=== PATIENT | male | born 1955 | race Caucasian/White ===

== ENCOUNTER 2017-06-28 09:30 | Outpatient (CLI) | payer OTHER ==
[2017-06-28 10:47] LABS: #Basophils 0.1 thou/uL (0.0-0.2); #Eosinphils 0.5 thou/uL (0.0-0.7); #Lymphocytes 2.2 thou/uL (1.20-3.40); #Monocytes 0.7 thou/uL (0.11-0.59); #Neutrophils 4.2 thou/uL (1.40-6.50); %Basophils 1.1 % (0.0-1.0); %Eosinophils 6.6 % (0.0-10.0); %Lymphocytes 28.1 % (21.0-51.0); %Monocytes 8.9 % (0.0-10.0); %Neutrophils 55.2 % (42.0-75.0); Hemoglobin 15.3 g/dL (14.0-18.0); Mean Corpuscular HGB CONC 34.4 g/dL (32.0-36.0); Mean Corpuscular Hemoglobin 34.4 pg (27.0-31.0); Mean Platelet Volume 8.5 fL (7.4-10.4); Platelet Count 304 thou/uL (130-400); RBC Distribution Width 12.3 % (11.5-14.5); Red Blood Cell (RBC) Count 4.46 mill/uL (4.70-6.10); White Blood Cell (WBC) Count 7.6 thou/uL (4.8-10.8)
[2017-06-28 10:59] LABS: ALT (SGPT) 23 U/L (8-55); AST (SGOT) 19 U/L (5-34); Albumin 4.7 g/dL (3.5-5.0); Alkaline Phosphatase 72 U/L (40-150); Anion Gap 16 mmol/L (10-20); BUN (Urea Nitrogen) 8 mg/dL (8.4-25.7); Bilirubin, Total 0.4 mg/dL (0.2-1.2); Calc. Creatinine Clearance 0 mL/min (70-130); Calcium 10.2 mg/dL (7.8-10.44); Carbon Dioxide 24 mmol/L (22-29); Chloride 104 mmol/L (98-107); Estimated GFR-MDRD Greater than 90; Globulin 2.6 g/dL (2.4-3.5); Glucose 86 mg/dL (70-105); Potassium 4.9 mmol/L (3.5-5.1); Protein, Total 7.3 g/dL (6.0-8.3); Sodium 139 mmol/L (136-145)
--- NOTE | 2017-06-28 16:38 | EKG ---
Test Reason : Blood Pressure : / mmHG Vent. Rate : 066 BPM Atrial Rate : 066 BPM P-R Int : 174 ms QRS Dur : 100 ms QT Int : 402 ms P-R-T Axes : 049 063 059 degrees QTc Int : 421 ms Normal sinus rhythm Repolarization variant Confirmed by DR. Jluis OJEDA ([id number]) on 06/28/2017 4:38:06 PM Referred By: JULIO Confirmed By:DR. Jluis OJEDA
== END 2017-06-28 09:31 | disposition home or self-care (01) ==
LOC: LABBT 09:30
PROVIDERS: ATTEND Surgery
DX: Z01.818 Encounter for other preprocedural examination (principal); K40.91 Unilateral inguinal hernia, without obstruction or gangrene, recurrent
CPT/HCPCS: 80053; 85025; 93005; 93010

== ENCOUNTER 2017-06-29 06:05 | Day surgery (SDC) | payer OTHER ==
[2017-06-28 10:16] VITALS: BMI 25.6
[2017-06-29] MEDS ORDERED: Bupivacaine/Epinephrine 0.25% 30 ML VIAL ONE (06:52)
[2017-06-29] MEDS ORDERED: Fentanyl 100 MCG/2 ML VIAL ONE (07:07)
[2017-06-29] MEDS ORDERED: CEFAZOLIN/Water 2 GM/20 ML SYRINGE ONE (07:07)
[2017-06-29] MEDS ORDERED: Midazolam HCl 2 mg/2 ml Vial ONE (07:21)
[2017-06-29] MEDS ORDERED: Ondansetron HCl/PF 4 MG/2 ML Vial ONE ×2 (07:21→13:26)
[2017-06-29] MEDS ORDERED: Ketorolac Tromethamine 30 MG/ML VIAL ONE ×2 (08:39→13:26)
[2017-06-29] MEDS ORDERED: Morphine 4 MG/ML VIAL ONE (09:21)
[2017-06-29] MEDS ORDERED: HYDROcodone/Acetaminophen 5/325 mg Tablet ONE (09:22)
--- NOTE | 2017-06-29 11:22 | OP ---
PREOPERATIVE DIAGNOSIS: Recurrent left inguinal hernia. SURGEON: Rajan Alanis M.D. PROCEDURE PERFORMED: Recurrent left inguinal hernia repair with mesh. INDICATIONS: This is a 62-year-old male who 3 years ago had a left inguinal hernia repair done with the robot, he developed a recurrent bulge. FINDINGS: A direct inguinal hernia. DESCRIPTION OF PROCEDURE: After informed consent was obtained, the patient was taken to the operatin g room and given general mask anesthesia and placed in the supine position. His left groin was prepp ed and draped in usual fashion. Local anesthesia infiltrated subcutaneously and deep. A transverse left inguinal incision was performed. Subcu divided sharply. The fascia was incised in the directio n of its fibers through the external ring. The spermatic cord isolated with a [place] drain. There was a hernia sac that was dissected from the cord structures down to a direct hernia medially. This was circumscribed and reduced. Reduction was maintained utilizing a PHS hernia system. This posteri or layer was placed in the preperitoneal space. Anterior was laid out, sutured to the pubic tubercle medially with a 2-0 Prolene suture, tucked under the external oblique fascia laterally. Hemostasis was assured. The cord placed anatomic. The fascia closed with a running 3-0 Vicryl. Nely's close d with interrupted 3-0 Vicryl and the skin closed with a running subcuticular 4-0 Rapide. Steri-Stri ps applied. Sterile bandage applied. The patient tolerated the procedure well and was transferred t o recovery in good condition. Sponge and needle count verified correct x2.
[2017-06-29] MEDS ORDERED: Dexamethasone 20 MG/5 ML VIAL ONE (13:26)
[2017-06-29] MEDS ORDERED: PROPOFOL 200 MG/20 ML VIAL ONE (13:26)
[2017-06-29] MEDS ORDERED: Lidocaine 1% PF 5 ML VIAL ONE (13:26)
[2017-06-29] MEDS ORDERED: PHENYLEPHRINE-NS 100 MCG/ML 10 ML SYRINGE ONE (13:26)
== END 2017-06-29 10:20 | disposition home or self-care (01) ==
LOC: SDC 06:05
PROVIDERS: ATTEND Surgery
PROC: 0YU60JZ Supplement Left Inguinal Region with Synthetic Substitute, Open Approach (ICD-10-PCS; principal; 2017-06-29)
DX: K40.91 Unilateral inguinal hernia, without obstruction or gangrene, recurrent (principal); K21.9 Gastro-esophageal reflux disease without esophagitis; G25.81 Restless legs syndrome; E78.5 Hyperlipidemia, unspecified; N52.9 Male erectile dysfunction, unspecified; M19.90 Unspecified osteoarthritis, unspecified site; M54.9 Dorsalgia, unspecified; G89.29 Other chronic pain; Z79.899 Other long term (current) drug therapy; Z88.5 Allergy status to narcotic agent; Z98.890 Other specified postprocedural states; Z87.891 Personal history of nicotine dependence
CPT/HCPCS: 96374; C1781; J1100; J1885; J2001; J2250; J2270; J2405; J2704; J3010

== ENCOUNTER 2019-01-03 10:21 | Outpatient (CLI) | payer OTHER ==
[2019-01-03] MEDS ORDERED: Gadobenate Dimeglumine 529 MG/1 ML (20ML VIAL) ONE (10:28)
--- NOTE | 2019-01-03 11:16 | RAD ---
SINUS X-RAY [place] V[place]: 01/03/2019 PROVIDED CLINICAL HISTORY: History of metal in the eye. FINDINGS: There is no evidence for a metallic foreign body in the region of the orbits. IMPRESSION: As above. POS: OFF
--- NOTE | 2019-01-03 11:54 | MRI ---
Exam: Brain MRI with and without contrast HISTORY: Vertebrobasilar artery syndrome. Patient fell off a ladder 4 weeks ago and hit his head on t he ground. Loss consciousness. COMPARISON: None FINDINGS: Gradient echo sequence: No hemorrhage Calvarium: Appropriate T1 marrow signal intensity Midline brain parenchyma: Unremarkable Cerebrum:No parenchymal mass, mass effect or midline shift. Age-appropriate atrophy. Cortical sosa-wh ite matter differentiation is preserved. Scattered T2 and FLAIR white matter hyperintensities due to chronic small vessel ischemic change Ventricles: No evidence of hydrocephalus. Sinuses and mastoid air cells: There is patchy mucosal thickening involving the paranasal sinuses. Mu cous retention cyst in the left maxillary sinus. Adequate mastoid air cell aeration bilaterally Diffusion: Central arterial flow is maintained. Absent restricted diffusion. Postcontrast images: No pathologic enhancement of the brain parenchyma. IMPRESSION: 1. No pathologic enhancement the brain parenchyma 2. Absent restricted diffusion. No acute infarct 3. Paranasal sinus disease.
== END 2019-01-03 10:22 | disposition home or self-care (01) ==
LOC: BICMRI 10:21
PROVIDERS: ATTEND Psychiatry & Neurology Neurology
DX: G45.0 Vertebro-basilar artery syndrome (principal); J32.9 Chronic sinusitis, unspecified
CPT/HCPCS: 70210; 70553; 82565; A9577

== ENCOUNTER 2022-05-14 08:07 | Outpatient (CLI) | payer OTHER | END 2022-05-14 08:08 | disposition home or self-care (01) | LOC: TBSIIMAG 08:07 | PROVIDERS: ATTEND Family Medicine | DX: M54.12 Radiculopathy, cervical region (principal); M54.16 Radiculopathy, lumbar region; M48.02 Spinal stenosis, cervical region; M48.061 Spinal stenosis, lumbar region without neurogenic claudication; M48.07 Spinal stenosis, lumbosacral region | CPT/HCPCS: 72141; 72148 ==

== ENCOUNTER 2024-10-25 06:10 | Day surgery (SDC) | payer MEDICARE ==
[2024-10-24 10:23] VITALS: BMI 24.4
[~2024-10-25 06:10] MED LIST: EPINEPHrine 0.3 MG in Ophthalmic Irrigation Solution 500 ML IRR SCH
[2024-10-25] MEDS ORDERED: Cyclopentolate 1% Opth Drop 2 ML BOT ONE (06:24)
[2024-10-25] MEDS ORDERED: PROPOFOL 20 ML ONE (07:01)
== END 2024-10-25 08:20 | disposition home or self-care (01) ==
LOC: SDC 06:10
PROVIDERS: ATTEND Ophthalmology Retina Specialist
PROC: 08T43ZZ Resection of Right Vitreous, Percutaneous Approach (ICD-10-PCS; principal; 2024-10-25)
PROC: 08NE3ZZ Release Right Retina, Percutaneous Approach (ICD-10-PCS; 2024-10-25)
DX: H43.311 Vitreous membranes and strands, right eye (principal); Z98.41 Cataract extraction status, right eye; Z96.1 Presence of intraocular lens; Z88.6 Allergy status to analgesic agent
CPT/HCPCS: 67041; J0166; J1100; J2250; J2704; J3010